=== PATIENT | male | born 1950 | race Caucasian/White ===

== ENCOUNTER 2021-11-06 10:57 | Emergency (ER) | payer MEDICARE ==
[2021-11-06 11:32] VITALS: BP 167/79; PULSE 114; RESP 16; TEMP 97.1
[2021-11-06] MEDS ORDERED: RX INFO: IV CONTRAST WAS GIVEN 1 EACH MISC MISCELLANE PRN (11:48)
[2021-11-06] MEDS ORDERED: MORPHINE SULFATE 4 MG/ML SYRINGE IVP STA (11:48)
[2021-11-06] MEDS ORDERED: HYDROmorphone 1 MG/ML 1 ML SYRINGE IVP STA (11:57)
[2021-11-06] MEDS ORDERED: HEPARIN SODIUM 1,000 UN/ML (10ML VL) IV ONE (12:08)
[2021-11-06] MEDS ORDERED: HEPARIN SODIUM 1,000 UN/ML (10ML VL) IV PRN (12:08)
--- NOTE | 2021-11-06 12:08 | ED ---
Extremity Problem HPI - General Chief complaint: Extremity Problem,Nontraumatic Stated complaint: frequent urination, lt leg numbness Time Seen by Provider: 11/06/21 11:40 Source: patient Mode of arrival: wheelchair Limitations: no limitations - History of Present Illness Initial comments: Patient is a 70-year-old female presenting with chief complaint of left calf pain. Patient states that the pain started around 5:00pm yesterday. Patient compares it to a cramping sensation, "like he just walked 10 miles". Patient has not been to a doctor in the last 15 years, has no known history of arterial occlusion or diabetes. Patient states there is pain at rest and increased pain with range of motion. Patient was a previous smoker, currently vapes. Admits to some numbness and tingling. He denies chest pain, shortness of breath, palpitations, abdominal pain, thigh pain. - Related Data Allergies Allergy/AdvReac Type Severity Reaction Status Date / Time No Known Allergies Allergy Verified 11/06/21 11:32 Review of Systems ROS Statement: Those systems with pertinent positive or pertinent negative responses have been documented in the HPI. ROS Other: All systems not noted in ROS Statement are negative. Past Medical History Past Medical History: No Reported History History of Any Multi-Drug Resistant Organisms: None Reported Past Surgical History: No Surgical Hx Reported Past Psychological History: No Psychological Hx Reported Smoking Status: Former smoker Past Alcohol Use History: None Reported Past Drug Use History: None Reported General Exam Limitations: no limitations General appearance: alert, in no apparent distress Head exam: Present: atraumatic, normocephalic, normal inspection Eye exam: Present: normal appearance, EOMI. Absent: scleral icterus, periorbital swelling Neck exam: Present: normal inspection Respiratory exam: Present: normal lung sounds bilaterally. Absent: respiratory distress, wheezes, rales, rhonchi, stridor Cardiovascular Exam: Present: normal rhythm, tachycardia, normal heart sounds. Absent: systolic murmur, diastolic murmur, rubs, gallop, clicks Left Lower Leg exam: Present: tenderness. Absent: swelling Neurovascular tendon exam: Present: pulse deficit (Unable to palpate distal or proximal pulses of the left lower extremity. No signal from Doppler), abnormal cap refill, extremity cold to touch, pallor Neurological exam: Present: alert, oriented X3, CN II-XII intact Psychiatric exam: Present: normal affect, normal mood Skin exam: Present: warm, dry, intact, normal color. Absent: rash Course Vital Signs 11/06/21 11:27 Temperature 97.1 F L Pulse Rate 114 H Respiratory 16 Rate Blood Pressure 167/79 O2 Sat by Pulse 97 Oximetry Medical Decision Making - Medical Decision Making Patient is a 70-year-old male presenting with chief complaint of left calf pain. Patient states symptoms started at 5 PM yesterday and have gotten worse since then. On examination the extremity is pale and dusky, I'm unable to palpate any distal or proximal pulses to the left lower extremity, normal distal pulses on the right lower extremity. Unable to obtain signal with Doppler. My attending Dr. Lazaro also evaluated this patient, agreed with the assessment. I contacted the vascular surgeon on-call Dr. Winter who advised transfer to [facility] and initiation of heparin. Discussed these findings the plan with the patient, he was agreeable. Transfer to [facility] was initiated. I spoke with Dr. Quiñones who accepted transfer, labs are pending at this time. I discussed this case with my attending Dr. Lazaro. - Lab Data Result diagrams: 11/06/21 12:10 11/06/21 12:19 Lab Results 11/06/21 11/06/21 11/06/21 Range/Units 12:10 12:19 12:19 WBC 15.2 H (3.8-10.6) k/uL RBC 5.49 (4.30-5.90) m/uL Hgb 15.9 (13.0-17.5) gm/dL Hct 50.7 (39.0-53.0) % MCV 92.5 (80.0-100.0) fL MCH 28.9 (25.0-35.0) pg MCHC 31.3 (31.0-37.0) g/dL RDW 12.8 (11.5-15.5) % Plt Count 176 (150-450) k/uL MPV 8.3 Neutrophils % 87 % Lymphocytes % 7 % Monocytes % 4 % Eosinophils % 1 % Basophils % 1 % Neutrophils # 13.2 H (1.3-7.7) k/uL Lymphocytes # 1.0 (1.0-4.8) k/uL Monocytes # 0.6 (0-1.0) k/uL Eosinophils # 0.2 (0-0.7) k/uL Basophils # 0.1 (0-0.2) k/uL PT 10.4 (9.0-12.0) sec INR 0.9 (<1.2) APTT 22.4 (22.0-30.0) sec Sodium 128 L (137-145) mmol/L Potassium 5.2 H (3.5-5.1) mmol/L Chloride 93 L (98-107) mmol/L Carbon Dioxide 19 L (22-30) mmol/L Anion Gap 16 mmol/L BUN 29 H (9-20) mg/dL Creatinine 1.17 (0.66-1.25) mg/dL Est GFR (CKD-EPI)AfAm 73 (>60 ml/min/1.73 sqM) Est GFR (CKD-EPI)NonAf 63 (>60 ml/min/1.73 sqM) Glucose 802 H* (74-99) mg/dL Calcium 8.6 (8.4-10.2) mg/dL Total Bilirubin 0.7 (0.2-1.3) mg/dL AST 23 (17-59) U/L ALT 25 (4-49) U/L Alkaline Phosphatase 226 H (38-126) U/L Total Protein 7.0 (6.3-8.2) g/dL Albumin 4.0 (3.5-5.0) g/dL Disposition Clinical Impression: Ischemic leg pain Disposition: OTHER INSTITUTION NOT DEFINED Condition: Serious Referrals: None,Stated [Primary Care Provider] - 1-2 days Time of Disposition: 12:08 - Out of Hospital Transfer - Req. Specs Out of Hospital Transfer - Requested Specifics: Other Emergency Center ([facility])
[2021-11-06] MEDS ORDERED: HEPARIN SOD,PORK IN 0.45% NACL 25,000 UNIT in 0.45% NACL 1 250ML.BAG IV SCH (12:15)
[2021-11-06] MEDS ORDERED: SODIUM CHLORIDE 0.9% 1,000 ML IV ONE (12:22)
[2021-11-06 12:24] LABS: Basophils # (A) 0.1 k/uL (0-0.2); Basophils % (A) 1 %; Eosinophils # (A) 0.2 k/uL (0-0.7); Eosinophils % (A) 1 %; HCT 50.7 % (39.0-53.0); HGB 15.9 gm/dL (13.0-17.5); Lymphocytes % (A) 7 %; MCH 28.9 pg (25.0-35.0); MCHC 31.3 g/dL (31.0-37.0); MCV 92.5 fL (80.0-100.0); Mean Platelet Volume 8.3; Monocytes # (A) 0.6 k/uL (0-1.0); Monocytes % (A) 4 %; Neutrophils # (A) 13.2 k/uL (1.3-7.7); Neutrophils % (A) 87 %; Platelet Count 176 k/uL (150-450); RBC 5.49 m/uL (4.30-5.90); RDW 12.8 % (11.5-15.5); WBC 15.2 k/uL (3.8-10.6)
[2021-11-06 12:34] LABS: INR 0.9 (<1.2); Partial Thromboplastin Time 22.4 sec (22.0-30.0); Prothrombin Time 10.4 sec (9.0-12.0)
[2021-11-06 12:35] LABS: Calcium 8.6 mg/dL (8.4-10.2); Potassium 5.2 mmol/L (3.5-5.1); Total Bilirubin 0.7 mg/dL (0.2-1.3)
[2021-11-06] MEDS ORDERED: fentaNYL (PF) 50 MCG/ML 2 ML AMP IVP STA (13:05)
[2021-11-06] MEDS ORDERED: INSULIN REGULAR 100 UNIT/ML VIAL (IM/SQ) SQ ONE (13:23)
[2021-11-06] MEDS ORDERED: INSULIN REGULAR 100 UNIT/ML VIAL (IV) IV ONE (13:29)
== END 2021-11-06 13:45 | disposition other institution (70) ==
LOC: EC 10:57
DX: M62.262 Nontraumatic ischemic infarction of muscle, left lower leg (principal); F17.290 Nicotine dependence, other tobacco product, uncomplicated
CPT/HCPCS: 36415; 80053; 85025; 85610; 85730; 99284; 96365; 96375; J3010; J1644 ×2; J1170

== ENCOUNTER 2021-11-29 01:53 | Emergency (ER) | payer MEDICARE ==
[2021-11-29 01:58] VITALS: TEMP 98.1
[2021-11-29] MEDS ORDERED: ONDANSETRON 4 MG/2 ML VIAL IVP STA (02:02)
[2021-11-29] MEDS ORDERED: SODIUM CHLORIDE 0.9% 1,000 ML IV STA (02:02)
[2021-11-29] MEDS ORDERED: MORPHINE SULFATE 4 MG/ML SYRINGE IVP STA (02:19)
--- NOTE | 2021-11-29 02:36 | ED ---
Abdominal Pain HPI - General Chief Complaint: Abdominal Pain Stated Complaint: Vomiting Time Seen by Provider: 11/29/21 02:00 Source: patient Mode of arrival: wheelchair Limitations: no limitations - History of Present Illness Initial Comments: 71-year-old male presents emergency room and reporting abdominal pain. 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 He had TPA directed therapy and then developed compartment syndrome where he had to go for fasciotomy. He was just discharged Monday. Patient states that since he has been home he has not been taking his eliquis because the coupon they provided him did not work. He has been doing well including with a walker. Today he developed some right lower quadrant abdominal pain and distention. He states he did have a bowel movement today. Denies any changes in his urination. No fevers. Admits to nausea without vomiting. Patient is status post appendectomy. He took some Pepto without improvement in his symptoms. He denies any numbness, tingling or weakness in his extremity. Incision has been clean, dry without drainage. No other alleviating, precipitating or modifying factors - Related Data Previous Rx's Medication Instructions Recorded Magnesium Citrate [Citrate of 296 ml PO ONCE #296 ml 11/29/21 Magnesia] Allergies Allergy/AdvReac Type Severity Reaction Status Date / Time No Known Allergies Allergy Verified 11/29/21 01:58 Review of Systems ROS Statement: Those systems with pertinent positive or pertinent negative responses have been documented in the HPI. ROS Other: All systems not noted in ROS Statement are negative. Past Medical History Past Medical History: No Reported History History of Any Multi-Drug Resistant Organisms: None Reported Past Surgical History: No Surgical Hx Reported Additional Past Surgical History / Comment(s): vascualr surgery Past Psychological History: No Psychological Hx Reported Smoking Status: Former smoker Past Alcohol Use History: None Reported Past Drug Use History: None Reported General Exam Limitations: no limitations General appearance: alert, in no apparent distress Head exam: Present: atraumatic, normocephalic, normal inspection Eye exam: Present: normal appearance, PERRL, EOMI. Absent: scleral icterus, conjunctival injection, periorbital swelling ENT exam: Present: normal exam, mucous membranes moist Neck exam: Present: normal inspection. Absent: tenderness, meningismus, lymphadenopathy Respiratory exam: Present: normal lung sounds bilaterally. Absent: respiratory distress, wheezes, rales, rhonchi, stridor Cardiovascular Exam: Present: regular rate, normal rhythm, normal heart sounds. Absent: systolic murmur, diastolic murmur, rubs, gallop, clicks GI/Abdominal exam: Present: soft, tenderness (right lower quadrant), normal bowel sounds. Absent: distended, guarding, rebound, rigid Extremities exam: Present: normal inspection, full ROM, normal capillary refill. Absent: tenderness, pedal edema, joint swelling, calf tenderness Back exam: Present: normal inspection Neurological exam: Present: alert, oriented X3, CN II-XII intact Psychiatric exam: Present: normal affect, normal mood Skin exam: Present: warm, dry, intact, normal color. Absent: rash Course Vital Signs 11/29/21 11/29/21 11/29/21 01:56 02:31 03:30 Temperature 98.1 F Pulse Rate 76 89 84 Respiratory 18 16 18 Rate Blood Pressure 207/96 165/89 146/74 O2 Sat by Pulse 97 99 96 Oximetry 11/29/21 05:16 Temperature Pulse Rate 72 Respiratory 18 Rate Blood Pressure 138/66 O2 Sat by Pulse 97 Oximetry Medical Decision Making - Medical Decision Making Upon arrival patient was placed into room 2. A thorough history and physical exam was performed. IV access is established and laboratory studies are conducted. Patient does go for CT. Labs demonstrated hemoglobin of 9.5. Creatinine is 1.2. CT demonstrates no acute intra-abdominal process. Patient does have significant stool Vera in the right lower quadrant. I did discuss diagnosis, differential and treatment options. Patient did receive 1 dose of pain medication and nausea medication. He states he feels improved at this time and is comfortable going home. He is given a dose of milk of magnesia. In structed to drink this when he gets home. If he does not have a bowel movement I called and additional prescription for mag citrate into the pharmacy for which he should drink half the bottle to start. Patient daughter has already figured out his eliquis prescription however they need to obtain it from the pharmacy tomorrow. He is given a dose in the emergency department. He needs to follow-up with his doctor and return for any new or worsening symptoms. Patient was agreeable and discharged home in stable condition - Lab Data Result diagrams: 11/29/21 02:11/29/21 02:29 Lab Results 11/29/21 11/29/21 11/29/21 Range/Units 02:29 02:29 02:29 WBC 9.8 (3.8-10.6) k/uL RBC 3.20 L (4.30-5.90) m/uL Hgb 9.5 L D (13.0-17.5) gm/dL Hct 29.6 L (39.0-53.0) % MCV 92.5 (80.0-100.0) fL MCH 29.7 (25.0-35.0) pg MCHC 32.1 (31.0-37.0) g/dL RDW 14.6 (11.5-15.5) % Plt Count 263 (150-450) k/uL MPV 7.6 Neutrophils % 84 % Lymphocytes % 10 % Monocytes % 5 % Eosinophils % 1 % Basophils % 1 % Neutrophils # 8.2 H (1.3-7.7) k/uL Lymphocytes # 0.9 L (1.0-4.8) k/uL Monocytes # 0.4 (0-1.0) k/uL Eosinophils # 0.1 (0-0.7) k/uL Basophils # 0.1 (0-0.2) k/uL PT (9.0-12.0) sec INR (<1.2) APTT (22.0-30.0) sec Sodium 134 L (137-145) mmol/L Potassium 4.4 (3.5-5.1) mmol/L Chloride 100 (98-107) mmol/L Carbon Dioxide 23 (22-30) mmol/L Anion Gap 11 mmol/L BUN 18 (9-20) mg/dL Creatinine 1.22 (0.66-1.25) mg/dL Est GFR (CKD-EPI)AfAm 69 (>60 ml/min/1.73 sqM) Est GFR (CKD-EPI)NonAf 60 (>60 ml/min/1.73 sqM) Glucose 150 H (74-99) mg/dL Plasma Lactic Acid Hardik 1.1 (0.7-2.0) mmol/L Calcium 8.9 (8.4-10.2) mg/dL Total Bilirubin 0.5 (0.2-1.3) mg/dL AST 29 (17-59) U/L ALT 29 (4-49) U/L Alkaline Phosphatase 149 H (38-126) U/L Troponin I (0.000-0.034) ng/mL Total Protein 6.5 (6.3-8.2) g/dL Albumin 3.7 (3.5-5.0) g/dL Lipase 56 (23-300) U/L 11/29/21 11/29/21 Range/Units 02:29 02:29 WBC (3.8-10.6) k/uL RBC (4.30-5.90) m/uL Hgb (13.0-17.5) gm/dL Hct (39.0-53.0) % MCV (80.0-100.0) fL MCH (25.0-35.0) pg MCHC (31.0-37.0) g/dL RDW (11.5-15.5) % Plt Count (150-450) k/uL MPV Neutrophils % % Lymphocytes % % Monocytes % % Eosinophils % % Basophils % % Neutrophils # (1.3-7.7) k/uL Lymphocytes # (1.0-4.8) k/uL Monocytes # (0-1.0) k/uL Eosinophils # (0-0.7) k/uL Basophils # (0-0.2) k/uL PT 10.5 (9.0-12.0) sec INR 1.0 (<1.2) APTT 23.4 (22.0-30.0) sec Sodium (137-145) mmol/L Potassium (3.5-5.1) mmol/L Chloride (98-107) mmol/L Carbon Dioxide (22-30) mmol/L Anion Gap mmol/L BUN (9-20) mg/dL Creatinine (0.66-1.25) mg/dL Est GFR (CKD-EPI)AfAm (>60 ml/min/1.73 sqM) Est GFR (CKD-EPI)NonAf (>60 ml/min/1.73 sqM) Glucose (74-99) mg/dL Plasma Lactic Acid Hardik (0.7-2.0) mmol/L Calcium (8.4-10.2) mg/dL Total Bilirubin (0.2-1.3) mg/dL AST (17-59) U/L ALT (4-49) U/L Alkaline Phosphatase (38-126) U/L Troponin I <0.012 (0.000-0.034) ng/mL Total Protein (6.3-8.2) g/dL Albumin (3.5-5.0) g/dL Lipase (23-300) U/L - EKG Data EKG Comments: EKG demonstrates sinus rhythm with a rate of 85. FL interval 193. QRS 93. QTC of 407. No acute ST segment elevations or depressions Disposition Clinical Impression: Abdominal pain Disposition: HOME SELF-CARE Condition: Stable Instructions (If sedation given, give patient instructions): Abdominal Pain (ED) Additional Instructions: Take the milk of mag for constipation. If you do not have a bowel movement, please obtain the magnesium citrate from the pharmacy. Follow-up with your doctor. Return for any new or worsening symptoms Prescriptions: Magnesium Citrate [Citrate of Magnesia] 296 ml PO ONCE #296 ml Is patient prescribed a controlled substance at d/c from ED?: No Referrals: None,Stated [Primary Care Provider] - 1-2 days Time of Disposition: 04:23
[2021-11-29 02:49] LABS: Basophils # (A) 0.1 k/uL (0-0.2); Basophils % (A) 1 %; Eosinophils # (A) 0.1 k/uL (0-0.7); Eosinophils % (A) 1 %; HCT 29.6 % (39.0-53.0); Lymphocytes # (A) 0.9 k/uL (1.0-4.8); Lymphocytes % (A) 10 %; MCH 29.7 pg (25.0-35.0); MCHC 32.1 g/dL (31.0-37.0); MCV 92.5 fL (80.0-100.0); Mean Platelet Volume 7.6; Monocytes # (A) 0.4 k/uL (0-1.0); Monocytes % (A) 5 %; Neutrophils # (A) 8.2 k/uL (1.3-7.7); Neutrophils % (A) 84 %; Platelet Count 263 k/uL (150-450); RDW 14.6 % (11.5-15.5); WBC 9.8 k/uL (3.8-10.6)
[2021-11-29 02:58] LABS: HGB 9.5 gm/dL (13.0-17.5)
[2021-11-29 03:04] LABS: Albumin 3.7 g/dL (3.5-5.0); Calcium 8.9 mg/dL (8.4-10.2); Potassium 4.4 mmol/L (3.5-5.1); Total Bilirubin 0.5 mg/dL (0.2-1.3); Total Protein 6.5 g/dL (6.3-8.2)
[2021-11-29 03:17] LABS: Partial Thromboplastin Time 23.4 sec (22.0-30.0); Prothrombin Time 10.5 sec (9.0-12.0)
--- NOTE | 2021-11-29 03:45 | CT ---
EXAMINATION TYPE: CT abdomen pelvis w con DATE OF EXAM: 11/29/2021 COMPARISON: None HISTORY: ABD PAIN WITH N&V CT DLP: 1113.8 mGycm Automated exposure control for dose reduction was used. CONTRAST: Performed with IV Contrast, patient injected with 100 mL of Isovue 300. Images obtained from the diaphragm to the floor the pelvis with the IV contrast. There is minimal subsegmental atelectasis at the lung bases. Heart size is normal. No pericardial eff usion. Liver spleen stomach pancreas and gallbladder appear intact. The bile ducts are not dilated. There is no adrenal mass. Kidneys of normal size. No hydronephrosis. Ureters are not dilated. No retr operitoneal adenopathy. There is 1.5 cm cortical cyst posterior right kidney. Bladder distends smooth ly. No inguinal hernia. No free fluid in the pelvis. There are multiple sigmoid diverticula. No diver ticulitis. The lumbar vertebrae have normal alignment. There is vacuum disc at L4-5. No lumbar compression fract ure posterior elements are intact. The bony pelvis is intact. Hip joints are intact. Bilateral hypert rophic acetabular spurring. Sacroiliac joints are intact. No focal bone destruction. IMPRESSION: There is some colonic diverticulosis without diverticulitis. Appendix not seen. No acute abnormality in the abdomen and pelvis.
[2021-11-29 04:04] VITALS: RESP 18
[2021-11-29] MEDS ORDERED: APIXABAN 5 MG TAB PO STA (04:20)
[2021-11-29] MEDS ORDERED: MAGNESIUM HYDROXIDE 2,400 MG/10 ML CUP PO PRN (04:21)
[2021-11-29 05:21] VITALS: BP 138/66; PULSE 72
== END 2021-11-29 05:21 | disposition home or self-care (01) ==
LOC: EC 01:53
DX: R10.9 Unspecified abdominal pain (principal); Z87.891 Personal history of nicotine dependence
CPT/HCPCS: 36415; 93005; 80053; 83605; 83690; 84484; 85025; 85610; 85730; 74177; 99284; 96374; 96375; 96361; J2270; J2405; Q9967